=== PATIENT | male | born 1990 | race Caucasian/White ===

== ENCOUNTER → 2017-12-03 | Outpatient (CLI) | payer BC | LOC: COL.RAD 12:25 | DX: R59.0 Localized enlarged lymph nodes (principal) ==

== ENCOUNTER → 2017-12-11 | Outpatient (CLI) | payer BC ==
[2017-12-11 16:02] LABS: PH 6 (5-8); SQUAMOUS EPITHELIAL None Seen /hpf; URINE APPEARANCE Clear; URINE BACTERIA None Seen /hpf; URINE BILIRUBIN Negative (NEGATIVE); URINE BLOOD Negative (NEGATIVE); URINE COLOR Colorless; URINE GLUCOSE Negative (NEGATIVE); URINE KETONE Negative (NEGATIVE); URINE LEUKOCYTE ESTERASE Negative (NEGATIVE); URINE NITRATE Negative (NEGATIVE); URINE PROTEIN(semi-quant) Negative (NEGATIVE); URINE RBC 0-2 /hpf; URINE UROBILINOGEN Negative (NEGATIVE)
[2017-12-11 16:08] LABS: COLLECTION METHOD CLEAN CATCH
== END ==
LOC: COL.LAB 13:29
PROVIDERS: Family Medicine
DX: R10.31 Right lower quadrant pain (principal); R59.9 Enlarged lymph nodes, unspecified

== ENCOUNTER 2018-10-14 12:19 | Emergency (ER) | payer BC ==
[~2018-10-14] VITALS: Ht 177.8 cm; Wt 97.6 kg
[2018-10-14 12:39] VITALS: BP 123/77
[2018-10-14 13:16] LABS: BASO # 0.1 (0.0-0.2); BASO % 0.9 % (0.0-2.0); EOS # 0.2 (0.0-0.7); EOS % 2.2 % (0-4.0); GRAN # 5.6 (1.4-6.5); GRAN % 64.2 % (42.2-75.2); HEMATOCRIT 45.4 % (42.0-52.0); HEMOGLOBIN 15.1 g/dl (13.5-18.0); LYMPH # 2.2 (1.2-3.4); LYMPH % 24.7 % (20.0-51.0); MEAN CELL VOLUME 87 fl (80.0-100.0); MEAN CORPUSCULAR HEMOGLOBIN 29 pg (27.0-31.0); MEAN CORPUSCULAR HGB CONC 33 g/dl (33.0-37.0); MEAN PLATELET VOLUME 10.8 fl (7.4-10.4); MONO # 0.7 (0.1-0.6); MONO % 7.7 % (1.7-9.3); PLATELET COUNT 285 K/mm3 (130-400); RED BLOOD COUNT 5.24 M/mm3 (4.20-5.60); REDCELL DISTRIBUTION WIDTH-CV 13.1 % (11.5-14.5)
[2018-10-14 13:26] LABS: ALBUMIN 4.4 gm/dL (3.5-5.0); BILIRUBIN,TOTAL 0.9 mg/dL (0.0-1.0); CALCIUM 9.5 mg/dL (8.4-10.2); CREATININE, serum 1.08 (0.66-1.25); TOTAL PROTEIN 8.1 gm/dL (6.4-8.2)
[2018-10-14 14:05] LABS: COLLECTION METHOD CLEAN CATCH
[2018-10-14 14:21] LABS: MUCOUS Present /lpf; PH 5 (5-8); SQUAMOUS EPITHELIAL 0-2 /hpf; URINE APPEARANCE Clear; URINE BACTERIA None Seen /hpf; URINE BILIRUBIN Negative (NEGATIVE); URINE BLOOD Negative (NEGATIVE); URINE COLOR Yellow; URINE GLUCOSE Negative (NEGATIVE); URINE KETONE 1+ (NEGATIVE); URINE LEUKOCYTE ESTERASE Negative (NEGATIVE); URINE NITRATE Negative (NEGATIVE); URINE PROTEIN(semi-quant) Negative (NEGATIVE); URINE UROBILINOGEN Negative (NEGATIVE)
[2018-10-14] MEDS ORDERED: OMNICEF 300MG300 MG PO (14:25)
[2018-10-14 14:48] VITALS: PULSE 68; TEMP 98.2
== END 2018-10-14 14:48 | disposition home or self-care (01) ==
LOC: COL.ER 12:19
PROVIDERS: Emergency Medicine
DX: N39.0 Urinary tract infection, site not specified (principal); F17.210 Nicotine dependence, cigarettes, uncomplicated
CPT/HCPCS: A4216; J0696; J7030

== ENCOUNTER 2019-04-03 07:08 | Emergency (ER) | payer BC ==
[~2019-04-03] VITALS: Ht 180.3 cm; Wt 97.7 kg
[~2019-04-03 07:08] MED LIST: OMNICEF 300MG300 MG PO
[2019-04-03 07:19] VITALS: BP 128/74
[2019-04-03 07:58] LABS: STREP SCREEN NEGATIVE
[2019-04-03 08:50] VITALS: PULSE 74; TEMP 97.7
[2019-04-03] MEDS ORDERED: OMNICEF 300MG300 MG PO (08:56)
== END 2019-04-03 08:53 | disposition home or self-care (01) ==
LOC: COL.ER 07:08
PROVIDERS: Family Medicine
DX: J03.90 Acute tonsillitis, unspecified (principal)

== ENCOUNTER 2019-04-11 19:28 | Emergency (ER) | payer BC ==
[~2019-04-11] VITALS: Ht 180.3 cm; Wt 97.7 kg
[2019-04-11 19:45] VITALS: BP 139/82; TEMP 98.7
[2019-04-11 20:08] LABS: COLLECTION METHOD CLEAN CATCH
[2019-04-11 20:16] LABS: PH 7 (5-8); SQUAMOUS EPITHELIAL 0-2 /hpf; URINE APPEARANCE Clear; URINE BACTERIA None Seen /hpf; URINE BILIRUBIN Negative (NEGATIVE); URINE BLOOD Negative (NEGATIVE); URINE COLOR Yellow; URINE GLUCOSE Negative (NEGATIVE); URINE KETONE Negative (NEGATIVE); URINE LEUKOCYTE ESTERASE Negative (NEGATIVE); URINE NITRATE Negative (NEGATIVE); URINE PROTEIN(semi-quant) Negative (NEGATIVE); URINE RBC 0-2 /hpf; URINE UROBILINOGEN Negative (NEGATIVE)
[2019-04-11 20:24] LABS: BASO # 0.1 (0.0-0.2); BASO % 1.2 % (0.0-2.0); EOS # 0.5 (0.0-0.7); EOS % 5.5 % (0-4.0); GRAN # 4.7 (1.4-6.5); GRAN % 53.1 % (42.2-75.2); HEMATOCRIT 47.8 % (42.0-52.0); HEMOGLOBIN 15.6 g/dl (13.5-18.0); LYMPH # 2.8 (1.2-3.4); LYMPH % 31.2 % (20.0-51.0); MEAN CELL VOLUME 88 fl (80.0-100.0); MEAN CORPUSCULAR HEMOGLOBIN 29 pg (27.0-31.0); MEAN CORPUSCULAR HGB CONC 33 g/dl (33.0-37.0); MEAN PLATELET VOLUME 11.2 fl (7.4-10.4); MONO # 0.8 (0.1-0.6); MONO % 8.8 % (1.7-9.3); PLATELET COUNT 276 K/mm3 (130-400); RED BLOOD COUNT 5.42 M/mm3 (4.20-5.60); REDCELL DISTRIBUTION WIDTH-CV 12.9 % (11.5-14.5)
[2019-04-11 20:36] LABS: ALANINE AMINOTRANSFERASE 23 U/L (21-72); ALBUMIN 4.3 gm/dL (3.5-5.0); ALKALINE PHOSPHATASE 78 U/L (50-136); ANION GAP 9 mmol/L (7-16); AST,SGOT 36 U/L (15-37); BILIRUBIN,TOTAL 0.2 mg/dL (0.0-1.0); BLOOD UREA NITROGEN 12 mg/dL (9-20); CALCIUM 9.5 mg/dL (8.4-10.2); CARBON DIOXIDE 28 mmol/L (22-30); CHLORIDE 105 mmol/L (98-107); CREATININE, serum 1.15 (0.66-1.25); GLUCOSE 96 mg/dL (74-106); LIPASE 33 U/L (23-300); POTASSIUM 3.9 mmol/L (3.4-5.0); SODIUM 142 mmol/L (137-145); TOTAL PROTEIN 7.8 gm/dL (6.4-8.2)
[2019-04-11 20:37] LABS: C-REACTIVE PROTEIN < 0.5 mg/dL (0.0-0.9)
[2019-04-11] MEDS ORDERED: ZOFRAN ODT8 MG PO (21:41)
[2019-04-11] MEDS ORDERED: PROTONIX 40MG T40 MG PO (21:49)
[2019-04-11 22:17] VITALS: PULSE 65
== END 2019-04-11 22:17 | disposition home or self-care (01) ==
LOC: COL.ER 19:28
PROVIDERS: Emergency Medicine
DX: R10.11 Right upper quadrant pain (principal)
CPT/HCPCS: C9113; J2270; J2405; J7030

== ENCOUNTER → 2019-04-15 | Outpatient (CLI) | payer BC ==
[~2019-04-15] MED LIST changes: +PROTONIX 40MG T40 MG PO; +ZOFRAN ODT8 MG PO
== END ==
LOC: COL.RAD 12:34
DX: R10.11 Right upper quadrant pain (principal)

== ENCOUNTER 2019-05-11 10:15 | Emergency (ER) | payer BC ==
[~2019-05-11] VITALS: Ht 180.3 cm; Wt 96.4 kg
[2019-05-11 10:29] VITALS: TEMP 98.8
[2019-05-11 11:18] LABS: COLLECTION METHOD CLEAN CATCH
[2019-05-11 11:26] LABS: MUCOUS Present /lpf; PH 5 (5-8); SQUAMOUS EPITHELIAL 0-2 /hpf; URINE APPEARANCE Clear; URINE BACTERIA None Seen /hpf; URINE BILIRUBIN Negative (NEGATIVE); URINE BLOOD 1+ (NEGATIVE); URINE COLOR Yellow; URINE GLUCOSE Negative (NEGATIVE); URINE KETONE Negative (NEGATIVE); URINE LEUKOCYTE ESTERASE Negative (NEGATIVE); URINE NITRATE Negative (NEGATIVE); URINE PROTEIN(semi-quant) Negative (NEGATIVE); URINE RBC 0-2 /hpf; URINE UROBILINOGEN Negative (NEGATIVE)
[2019-05-11 11:32] LABS: BASO # 0.1 (0.0-0.2); BASO % 0.6 % (0.0-2.0); EOS # 0.7 (0.0-0.7); EOS % 7.5 % (0-4.0); GRAN # 6.7 (1.4-6.5); GRAN % 68.6 % (42.2-75.2); HEMOGLOBIN 16.5 g/dl (13.5-18.0); LYMPH # 1.5 (1.2-3.4); LYMPH % 15.8 % (20.0-51.0); MEAN CELL VOLUME 88 fl (80.0-100.0); MEAN CORPUSCULAR HEMOGLOBIN 29 pg (27.0-31.0); MEAN CORPUSCULAR HGB CONC 33 g/dl (33.0-37.0); MEAN PLATELET VOLUME 10.9 fl (7.4-10.4); MONO # 0.7 (0.1-0.6); MONO % 7.3 % (1.7-9.3); PLATELET COUNT 251 K/mm3 (130-400); RED BLOOD COUNT 5.69 M/mm3 (4.20-5.60); REDCELL DISTRIBUTION WIDTH-CV 12.9 % (11.5-14.5)
[2019-05-11 11:33] LABS: ALANINE AMINOTRANSFERASE 34 U/L (21-72); ALBUMIN 4.7 gm/dL (3.5-5.0); ALKALINE PHOSPHATASE 80 U/L (50-136); ANION GAP 8 mmol/L (7-16); AST,SGOT 56 U/L (15-37); BILIRUBIN,TOTAL 0.7 mg/dL (0.0-1.0); BLOOD UREA NITROGEN 17 mg/dL (9-20); CALCIUM 9.7 mg/dL (8.4-10.2); CARBON DIOXIDE 28 mmol/L (22-30); CHLORIDE 103 mmol/L (98-107); CREATININE, serum 1.19 (0.66-1.25); GLUCOSE 113 mg/dL (74-106); POTASSIUM 4.2 mmol/L (3.4-5.0); SODIUM 139 mmol/L (137-145); TOTAL PROTEIN 8.6 gm/dL (6.4-8.2)
[2019-05-11 11:41] LABS: TRICYCLIC ANTIDEPRESS URINE NEGATIVE
[2019-05-11 11:53] LABS: ACETAMINOPHEN < 10 ug/mL (10-30); ALCOHOL(ethanol),MEDICAL < 10 mg/dL; SALICYLATE < 1.0 mg/dL
[2019-05-11 14:10] VITALS: BP 127/90; PULSE 94
== END 2019-05-11 14:10 | disposition home or self-care (01) ==
LOC: COL.ER 10:15
PROVIDERS: Emergency Medicine
DX: F15.10 Other stimulant abuse, uncomplicated (principal); F54 Psychological and behavioral factors associated with disorders or diseases classified elsewhere; F17.210 Nicotine dependence, cigarettes, uncomplicated